=== PATIENT | female | born 1945 | race Caucasian/White ===

== ENCOUNTER → 2016-03-04 | Outpatient (CLI) | payer MEDICARE, OTHER ==
[~2016-03-04] VITALS: Ht 154.9 cm; Wt 114.8 kg
[~2016-03-04] MED LIST: ALEVE COLD PO; B-121000 MCG PO; CELLUVISC OU; CENTRUM SILVER1 CTB PO; CLEOCIN HCL300 MG PO; COLACE 100100 MG/CAP PO; DECADRON 4MG TAB4 MG PO; FLONASE NASAL S16 GM NS; GLUCOSAMINE & C1 CA1 PO; LUTEIN20 MG PO; NASALCROM5.2 MG/ACT; OS-CAL 500 + D1 TAB PO; OYSCO 500 + D 51 TAB PO; PERCOCET 325 MG1 TA2 PO; PREDNISONE20 MG PO; PRIL40 PO; PRILOSEC 20MG20 MG PO; PRILOSEC10 MG/Pack PO; REFRESH CELLUVI1 SOL OU; REFRESH PLUS 00.4 M1 OU; RESTASIS0.05% OP; SYNTHROID0.175 MG; SYNTHROID0.2 MG/TAB PO; VITAMIN D3; VITAMIN D32000 IU PO; WELLBUTRIN 75MG75 MG PO; ZEAXANTHIN PO; ZOFRAN ODT4 MG PO; [UNRECOGNIZED DRUG - OTHER] NS; [UNRECOGNIZED DRUG - OTHER] PO
[2016-03-04 15:40] VITALS: BP 140/66; PULSE 72
[2016-03-04 16:51] VITALS: BP 140/66; PULSE 72
== END ==
LOC: LIGHT 01-15 14:47
DX: E16.1 Other hypoglycemia (principal); E66.01 Morbid (severe) obesity due to excess calories; Z68.42 Body mass index [BMI] 45.0-49.9, adult; E03.8 Other specified hypothyroidism; K21.9 Gastro-esophageal reflux disease without esophagitis

== ENCOUNTER → 2016-05-06 | Outpatient (CLI) | payer MEDICARE, OTHER ==
[~2016-05-06] VITALS: Ht 156.2 cm; Wt 116.1 kg
== END ==
LOC: LIGHT 13:50
DX: E16.1 Other hypoglycemia (principal); K21.9 Gastro-esophageal reflux disease without esophagitis; E03.8 Other specified hypothyroidism; E66.01 Morbid (severe) obesity due to excess calories; Z68.42 Body mass index [BMI] 45.0-49.9, adult

== ENCOUNTER → 2016-08-12 | Outpatient (CLI) | payer MEDICARE, OTHER ==
[~2016-08-12] VITALS: Ht 156.2 cm; Wt 118.4 kg
[2016-08-12 15:07] VITALS: BP 134/66; PULSE 66
== END ==
LOC: LIGHT 06-10 09:25
DX: E16.1 Other hypoglycemia (principal); E66.01 Morbid (severe) obesity due to excess calories; Z71.3 Dietary counseling and surveillance; E03.9 Hypothyroidism, unspecified; K21.9 Gastro-esophageal reflux disease without esophagitis

== ENCOUNTER → 2016-10-07 | Outpatient (CLI) | payer MEDICARE, OTHER ==
[~2016-10-07] VITALS: Ht 156.2 cm; Wt 117.5 kg
[2016-10-07 14:24] VITALS: BP 126/60; PULSE 72
== END ==
LOC: LIGHT 13:58
DX: E16.1 Other hypoglycemia (principal); E66.01 Morbid (severe) obesity due to excess calories; Z68.42 Body mass index [BMI] 45.0-49.9, adult; Z71.3 Dietary counseling and surveillance; E03.9 Hypothyroidism, unspecified; K21.9 Gastro-esophageal reflux disease without esophagitis

== ENCOUNTER → 2016-11-10 | Outpatient (CLI) | payer MEDICARE, OTHER | LOC: COL.RAD 09:43 | DX: K76.0 Fatty (change of) liver, not elsewhere classified (principal); R79.89 Other specified abnormal findings of blood chemistry; R94.5 Abnormal results of liver function studies; Z90.49 Acquired absence of other specified parts of digestive tract ==

== ENCOUNTER → 2016-11-11 | Outpatient (CLI) | payer MEDICARE, OTHER ==
[~2016-11-11] VITALS: Ht 154.9 cm; Wt 115.9 kg
[~2016-11-11] MED LIST changes: +ANTIVERT 25MG25 MG PO; +PHENERGAN 25 TA25 MG PO
[2016-11-11 13:37] VITALS: BP 130/70; PULSE 68
== END ==
LOC: LIGHT
DX: E16.1 Other hypoglycemia (principal); E66.01 Morbid (severe) obesity due to excess calories; Z68.42 Body mass index [BMI] 45.0-49.9, adult; Z71.3 Dietary counseling and surveillance; E03.9 Hypothyroidism, unspecified; K21.9 Gastro-esophageal reflux disease without esophagitis

== ENCOUNTER 2016-12-02 14:51 | Emergency (ER) | payer MEDICARE, OTHER ==
[~2016-12-02] VITALS: Ht 154.9 cm; Wt 115.5 kg
[~2016-12-02 14:51] MED LIST changes: -ANTIVERT 25MG25 MG PO; -PHENERGAN 25 TA25 MG PO
[2016-12-02 14:54] VITALS: TEMP 97.8
[2016-12-02 15:51] LABS: ADJUSTED CALCIUM 9.2 mg/dL (8.4-10.2); ALANINE AMINOTRANSFERASE 62 U/L (9-52); ALBUMIN 4.2 gm/dL (3.5-5.0); ALKALINE PHOSPHATASE 78 U/L (50-136); ANION GAP 13 mmol/L (7-16); BASO # 0.1 (0.0-0.2); BASO % 0.7 % (0.0-2.0); BILIRUBIN,TOTAL 0.7 mg/dL (0.0-1.0); BLOOD UREA NITROGEN 16 mg/dL (7-17); CALCIUM 9.4 mg/dL (8.4-10.2); CARBON DIOXIDE 19 mmol/L (22-30); CHLORIDE 108 mmol/L (98-107); CREATININE, serum 0.72 mg/dL (0.52-1.25); EOS # 0.7 (0.0-0.7); EOS % 9.1 % (0-4.0); GLUCOSE 102 mg/dL (74-106); GRAN # 3.9 (1.4-6.5); GRAN % 48.4 % (42.2-75.2); HEMATOCRIT 42.2 % (37.0-47.0); HEMOGLOBIN 13.9 g/dl (12.5-16.0); LIPASE 104 U/L (23-300); LYMPH # 2.5 (1.2-3.4); LYMPH % 31.2 % (20.0-51.0); MEAN CELL VOLUME 90 fl (80.0-100.0); MEAN CORPUSCULAR HEMOGLOBIN 30 pg (27.0-31.0); MEAN CORPUSCULAR HGB CONC 33 g/dl (33.0-37.0); MEAN PLATELET VOLUME 12.1 fl (7.4-10.4); MONO # 0.9 (0.1-0.6); MONO % 10.4 % (1.7-9.3); PLATELET COUNT 180 K/mm3 (130-400); POTASSIUM 3.9 mmol/L (3.4-5.0); RED BLOOD COUNT 4.68 M/mm3 (4.10-5.30); SODIUM 140 mmol/L (137-145); TOTAL PROTEIN 7.7 gm/dL (6.4-8.2); WHITE BLOOD COUNT 8.1 K/mm3 (4.8-10.8)
[2016-12-02 15:52] LABS: INR 1.1 (0.8-3.0); PROTHROMBIN TIME 12.2 SECONDS (9.7-12.8)
[2016-12-02 16:02] LABS: B-TYPE NATRIURETIC PEPTIDE 91 pg/mL (0-125)
[2016-12-02 16:07] LABS: TROPONIN-I < 0.012 ng/mL (0.000-0.034)
[2016-12-02 17:14] VITALS: BP 131/83
[2016-12-02] MEDS ORDERED: ANTIVERT 25MG25 MG PO (18:14)
[2016-12-02] MEDS ORDERED: PHENERGAN 25 TA25 MG PO (18:14)
[2016-12-02 18:27] VITALS: PULSE 63
== END 2016-12-02 18:29 | disposition home or self-care (01) ==
LOC: COL.ER 14:51
PROVIDERS: Emergency Medicine
DX: R42 Dizziness and giddiness (principal); Z86.79 Personal history of other diseases of the circulatory system; Z87.19 Personal history of other diseases of the digestive system; Z95.0 Presence of cardiac pacemaker; Z90.49 Acquired absence of other specified parts of digestive tract; Z98.890 Other specified postprocedural states
CPT/HCPCS: J2550; J7040

== ENCOUNTER → 2016-12-09 | Outpatient (CLI) | payer MEDICARE, OTHER ==
[~2016-12-09] VITALS: Ht 154.9 cm; Wt 114.1 kg
[~2016-12-09] MED LIST changes: +ANTIVERT 25MG25 MG PO; +MOVE FREE ULTRA PO; +PHENERGAN 25 TA25 MG PO
[2016-12-09 16:10] VITALS: BP 140/68; PULSE 80
== END ==
LOC: LIGHT 10:30
DX: E16.1 Other hypoglycemia (principal); E66.01 Morbid (severe) obesity due to excess calories; Z68.42 Body mass index [BMI] 45.0-49.9, adult; Z71.3 Dietary counseling and surveillance; E03.9 Hypothyroidism, unspecified; K21.9 Gastro-esophageal reflux disease without esophagitis

== ENCOUNTER → 2017-02-03 | Outpatient (CLI) | payer MEDICARE, OTHER ==
[~2017-02-03] VITALS: Ht 154.9 cm; Wt 114.3 kg
[2017-02-03 13:49] VITALS: BP 126/64; PULSE 60
== END ==
LOC: LIGHT 09:40
DX: E16.1 Other hypoglycemia (principal); E66.01 Morbid (severe) obesity due to excess calories; Z68.42 Body mass index [BMI] 45.0-49.9, adult; Z71.3 Dietary counseling and surveillance; E03.9 Hypothyroidism, unspecified; K21.9 Gastro-esophageal reflux disease without esophagitis

== ENCOUNTER → 2017-05-05 | Outpatient (CLI) | payer MEDICARE, OTHER ==
[~2017-05-05] VITALS: Ht 154.9 cm; Wt 115.2 kg
[~2017-05-05] MED LIST changes: -B-121000 MCG PO; +GLUCOPHAGE500 MG/TAB PO; +VITAMIN B12 681 TAB PO
[2017-05-05 13:17] VITALS: BP 114/62; PULSE 72
== END ==
LOC: LIGHT 04-17 10:19
DX: E16.1 Other hypoglycemia (principal); E66.01 Morbid (severe) obesity due to excess calories; Z68.42 Body mass index [BMI] 45.0-49.9, adult; Z71.3 Dietary counseling and surveillance; E03.9 Hypothyroidism, unspecified; K21.9 Gastro-esophageal reflux disease without esophagitis
CPT/HCPCS: G0463

== ENCOUNTER → 2017-06-09 | Outpatient (CLI) | payer MEDICARE, OTHER ==
[~2017-06-09] VITALS: Ht 154.9 cm; Wt 112.3 kg
[2017-06-09 13:10] VITALS: BP 120/70; PULSE 64
== END ==
LOC: LIGHT 12:59
DX: E16.1 Other hypoglycemia (principal); E66.01 Morbid (severe) obesity due to excess calories; Z71.3 Dietary counseling and surveillance; E03.9 Hypothyroidism, unspecified; K21.9 Gastro-esophageal reflux disease without esophagitis
CPT/HCPCS: G0463

== ENCOUNTER → 2017-06-30 | Outpatient (CLI) | payer MEDICARE, OTHER ==
[~2017-06-30] VITALS: Ht 154.9 cm; Wt 112.5 kg
[~2017-06-30] MED LIST changes: -GLUCOPHAGE500 MG/TAB PO; +GLUCOPHAGE850 MG/TAB PO
[2017-06-30 13:51] VITALS: BP 126/60; PULSE 72
== END ==
LOC: LIGHT 08:55
DX: E16.1 Other hypoglycemia (principal); E66.01 Morbid (severe) obesity due to excess calories; Z68.42 Body mass index [BMI] 45.0-49.9, adult; Z71.3 Dietary counseling and surveillance; E03.9 Hypothyroidism, unspecified; K21.9 Gastro-esophageal reflux disease without esophagitis
CPT/HCPCS: G0463

== ENCOUNTER → 2017-07-22 | Outpatient (CLI) | payer MEDICARE, OTHER | LOC: COL.RAD 07-20 09:00 | DX: M17.12 Unilateral primary osteoarthritis, left knee (principal) ==

== ENCOUNTER → 2017-09-01 | Outpatient (CLI) | payer MEDICARE, OTHER ==
[~2017-09-01] VITALS: Ht 154.9 cm; Wt 110.2 kg
[2017-09-01 13:13] VITALS: BP 130/64; PULSE 80
== END ==
LOC: LIGHT 08-04 15:13
DX: E16.1 Other hypoglycemia (principal); E66.01 Morbid (severe) obesity due to excess calories; Z68.42 Body mass index [BMI] 45.0-49.9, adult; Z71.3 Dietary counseling and surveillance; E03.9 Hypothyroidism, unspecified; K21.9 Gastro-esophageal reflux disease without esophagitis
CPT/HCPCS: G0463

== ENCOUNTER → 2017-11-03 | Outpatient (CLI) | payer MEDICARE, OTHER ==
[~2017-11-03] VITALS: Ht 154.9 cm; Wt 108.0 kg
[~2017-11-03] MED LIST changes: +IMODIUM 2MG CAPS2 MG PO; +PROBIOTIC-MAJOR PO
[2017-11-03 13:14] VITALS: BP 120/60; PULSE 84
== END ==
LOC: LIGHT 10:48
DX: E16.9 Disorder of pancreatic internal secretion, unspecified (principal); E03.9 Hypothyroidism, unspecified; K21.9 Gastro-esophageal reflux disease without esophagitis; E66.01 Morbid (severe) obesity due to excess calories; Z68.42 Body mass index [BMI] 45.0-49.9, adult; Z71.3 Dietary counseling and surveillance
CPT/HCPCS: G0463

== ENCOUNTER → 2018-03-16 | Outpatient (CLI) | payer MEDICARE, OTHER ==
[~2018-03-16] VITALS: Ht 154.9 cm; Wt 109.3 kg
[~2018-03-16] MED LIST changes: +GLUCOPHAGE XR750 MG PO; -GLUCOPHAGE850 MG/TAB PO
[2018-03-16 15:05] VITALS: BP 142/64; PULSE 76
== END ==
LOC: LIGHT 12-08 16:17
DX: E16.9 Disorder of pancreatic internal secretion, unspecified (principal); E03.9 Hypothyroidism, unspecified; K21.9 Gastro-esophageal reflux disease without esophagitis; E66.01 Morbid (severe) obesity due to excess calories; Z68.42 Body mass index [BMI] 45.0-49.9, adult; Z71.3 Dietary counseling and surveillance
CPT/HCPCS: G0463

== ENCOUNTER → 2018-06-01 | Outpatient (CLI) | payer MEDICARE, OTHER ==
[~2018-06-01] VITALS: Ht 154.9 cm; Wt 109.1 kg
[2018-06-01 13:08] VITALS: BP 136/66; PULSE 84
== END ==
LOC: LIGHT 12:51
DX: E16.9 Disorder of pancreatic internal secretion, unspecified (principal); E03.9 Hypothyroidism, unspecified; K21.9 Gastro-esophageal reflux disease without esophagitis; E66.01 Morbid (severe) obesity due to excess calories; Z68.42 Body mass index [BMI] 45.0-49.9, adult; Z71.3 Dietary counseling and surveillance
CPT/HCPCS: G0463

== ENCOUNTER → 2018-06-21 | Outpatient (CLI) | payer MEDICARE, OTHER | LOC: MC.RAD 07:36 | DX: Z12.31 Encounter for screening mammogram for malignant neoplasm of breast (principal) ==

== ENCOUNTER → 2018-07-13 | Outpatient (CLI) | payer MEDICARE, OTHER ==
[~2018-07-13] VITALS: Ht 154.9 cm; Wt 108.0 kg
[~2018-07-13] MED LIST changes: +LIPITOR20 MG PO
[2018-07-13 13:06] VITALS: BP 128/70; PULSE 64
== END ==
LOC: LIGHT 12:50
DX: E16.9 Disorder of pancreatic internal secretion, unspecified (principal); E03.9 Hypothyroidism, unspecified; K21.9 Gastro-esophageal reflux disease without esophagitis; E66.01 Morbid (severe) obesity due to excess calories; Z68.41 Body mass index [BMI] 40.0-44.9, adult; Z71.3 Dietary counseling and surveillance
CPT/HCPCS: G0463

== ENCOUNTER → 2018-09-07 | Outpatient (CLI) | payer MEDICARE, OTHER ==
[~2018-09-07] VITALS: Ht 152.4 cm; Wt 108.4 kg
[2018-09-07 13:23] VITALS: BP 112/66; PULSE 72
== END ==
LOC: LIGHT 13:01
DX: E16.9 Disorder of pancreatic internal secretion, unspecified (principal); E03.9 Hypothyroidism, unspecified; K21.9 Gastro-esophageal reflux disease without esophagitis; E66.01 Morbid (severe) obesity due to excess calories; Z68.42 Body mass index [BMI] 45.0-49.9, adult; Z71.3 Dietary counseling and surveillance
CPT/HCPCS: G0463

== ENCOUNTER → 2018-11-09 | Outpatient (CLI) | payer MEDICARE, OTHER ==
[~2018-11-09] VITALS: Ht 152.4 cm; Wt 108.9 kg
[~2018-11-09] MED LIST changes: +B-121000 MCG PO; -VITAMIN B12 681 TAB PO; +VITAMIN D31000 I1 PO; -VITAMIN D32000 IU PO
[2018-11-09 14:03] VITALS: BP 142/64; PULSE 64
== END ==
LOC: LIGHT 10-12 15:16
DX: E16.9 Disorder of pancreatic internal secretion, unspecified (principal); E03.9 Hypothyroidism, unspecified; K21.9 Gastro-esophageal reflux disease without esophagitis; E66.01 Morbid (severe) obesity due to excess calories; Z68.42 Body mass index [BMI] 45.0-49.9, adult; Z71.3 Dietary counseling and surveillance
CPT/HCPCS: G0463

== ENCOUNTER → 2018-12-07 | Outpatient (CLI) | payer MEDICARE, OTHER ==
[~2018-12-07] VITALS: Ht 152.4 cm; Wt 108.6 kg
[2018-12-07 13:51] VITALS: BP 150/74; PULSE 64
== END ==
LOC: LIGHT 13:38
DX: E16.9 Disorder of pancreatic internal secretion, unspecified (principal); E03.9 Hypothyroidism, unspecified; K21.9 Gastro-esophageal reflux disease without esophagitis; E66.01 Morbid (severe) obesity due to excess calories; Z68.42 Body mass index [BMI] 45.0-49.9, adult; Z71.3 Dietary counseling and surveillance
CPT/HCPCS: G0463

== ENCOUNTER → 2019-04-12 | Outpatient (CLI) | payer MEDICARE, OTHER ==
[~2019-04-12] VITALS: Ht 152.4 cm; Wt 109.5 kg
[~2019-04-12] MED LIST changes: +ALEVE 220MG220 MG PO; -ALEVE COLD PO; +ALEVE SINUS & H1 TER PO; +FOLIC ACID 11 MG/TA1 PO; +LIDEX CR 15GM TP; +LUTEIN 15 MG-0.1 SGL PO; +MULTIVITAMIN FO1 CAP PO; +RELAFEN 50500 MG/TAB PO; -SYNTHROID0.175 MG; +SYNTHROID0.175 MG PO; -VITAMIN D31000 I1 PO; +VITAMIN D32000 I1 PO; -ZEAXANTHIN PO; -[UNRECOGNIZED DRUG - OTHER] PO
[2019-04-12 14:52] VITALS: BP 142/62; PULSE 76
== END ==
LOC: LIGHT 14:42
DX: Z68.42 Body mass index [BMI] 45.0-49.9, adult (principal); E16.1 Other hypoglycemia; K21.9 Gastro-esophageal reflux disease without esophagitis
CPT/HCPCS: G0463

== ENCOUNTER → 2019-05-03 | Outpatient (CLI) | payer MEDICARE, OTHER ==
[~2019-05-03] VITALS: Ht 152.4 cm; Wt 110.2 kg
[2019-05-03 13:30] VITALS: BP 144/64; PULSE 64
== END ==
LOC: LIGHT 13:16
DX: Z68.42 Body mass index [BMI] 45.0-49.9, adult (principal); E16.1 Other hypoglycemia; K21.9 Gastro-esophageal reflux disease without esophagitis
CPT/HCPCS: G0463

== ENCOUNTER 2019-05-13 09:30 | Outpatient (RCR) | payer MEDICARE, OTHER | END 2019-06-26 | disposition home or self-care (01) | LOC: WSPT | DX: M17.12 Unilateral primary osteoarthritis, left knee (principal) ==

== ENCOUNTER → 2019-05-16 | Outpatient (CLI) | payer MEDICARE, OTHER | LOC: COL.RAD 10:48 | DX: M51.16 Intervertebral disc disorders with radiculopathy, lumbar region (principal); M47.816 Spondylosis without myelopathy or radiculopathy, lumbar region; M43.16 Spondylolisthesis, lumbar region ==

== ENCOUNTER → 2019-08-02 | Outpatient (CLI) | payer MEDICARE, OTHER | LOC: MHCPAIN 08:21 | DX: M47.817 Spondylosis without myelopathy or radiculopathy, lumbosacral region (principal); M54.5 Low back pain; M54.16 Radiculopathy, lumbar region; G89.29 Other chronic pain | CPT/HCPCS: G0463 ==

== ENCOUNTER → 2019-08-08 | Outpatient (CLI) | payer MEDICARE, OTHER | LOC: MC.RAD 13:48 | DX: Z12.31 Encounter for screening mammogram for malignant neoplasm of breast (principal) ==

== ENCOUNTER → 2019-09-06 | Outpatient (CLI) | payer MEDICARE, OTHER ==
[~2019-09-06] VITALS: Ht 152.4 cm; Wt 106.1 kg
[~2019-09-06] MED LIST changes: +PROTONIX20 MG PO
[2019-09-06 13:09] VITALS: BP 130/74; PULSE 72
== END ==
LOC: LIGHT 08-16 13:27
DX: E66.01 Morbid (severe) obesity due to excess calories (principal); Z68.41 Body mass index [BMI] 40.0-44.9, adult; E16.1 Other hypoglycemia; K21.9 Gastro-esophageal reflux disease without esophagitis
CPT/HCPCS: G0463

== ENCOUNTER → 2019-10-11 | Outpatient (CLI) | payer MEDICARE, OTHER ==
[~2019-10-11] VITALS: Ht 152.4 cm; Wt 107.7 kg
[~2019-10-11] MED LIST changes: +VITAMIN D31000 I1 PO
[2019-10-11 15:03] VITALS: BP 134/72; PULSE 72
== END ==
LOC: LIGHT 10:42
DX: E66.01 Morbid (severe) obesity due to excess calories (principal); Z68.41 Body mass index [BMI] 40.0-44.9, adult; E16.1 Other hypoglycemia; E03.9 Hypothyroidism, unspecified; K21.9 Gastro-esophageal reflux disease without esophagitis
CPT/HCPCS: G0463

== ENCOUNTER → 2019-12-06 | Outpatient (CLI) | payer MEDICARE, OTHER ==
[~2019-12-06] VITALS: Ht 152.4 cm; Wt 105.2 kg
[~2019-12-06] MED LIST changes: +CULTURELLE WOM1 EACH PO; +LIPITOR 10MG10 MG PO; -LIPITOR20 MG PO; -PROBIOTIC-MAJOR PO; +PROTONIX 40MG T40 MG PO; -PROTONIX20 MG PO; +TOPROL XL 25MG25 MG PO
[2019-12-06 15:20] VITALS: BP 130/66; PULSE 76
== END ==
LOC: LIGHT 11-08 14:42
DX: E66.01 Morbid (severe) obesity due to excess calories (principal); Z68.42 Body mass index [BMI] 45.0-49.9, adult; E16.1 Other hypoglycemia; E03.9 Hypothyroidism, unspecified
CPT/HCPCS: G0463

== ENCOUNTER → 2020-01-10 | Outpatient (CLI) | payer MEDICARE, OTHER ==
[~2020-01-10] VITALS: Ht 152.4 cm; Wt 108.0 kg
[~2020-01-10] MED LIST changes: +B-12 500 MCG PO; +SYNTHROID 0.10.15 MG PO; -SYNTHROID0.175 MG PO
[2020-01-10 14:20] VITALS: BP 130/60; PULSE 80
== END ==
LOC: LIGHT 10:20
DX: E66.01 Morbid (severe) obesity due to excess calories (principal); Z68.42 Body mass index [BMI] 45.0-49.9, adult; E16.1 Other hypoglycemia; K21.9 Gastro-esophageal reflux disease without esophagitis
CPT/HCPCS: G0463

== ENCOUNTER → 2020-08-09 | Outpatient (CLI) | payer MEDICARE, OTHER | LOC: MC.RAD 08:45 | DX: Z12.31 Encounter for screening mammogram for malignant neoplasm of breast (principal) ==

== ENCOUNTER → 2021-03-22 | Outpatient (CLI) | payer MEDICARE, OTHER | LOC: ZCOL.LAB 15:28 | DX: Z20.822 Contact with and (suspected) exposure to COVID-19 (principal) ==

== ENCOUNTER → 2021-03-28 | Outpatient (CLI) | payer MEDICARE, OTHER | LOC: ZCOL.LAB 16:20 | DX: R09.81 Nasal congestion (principal); Z20.822 Contact with and (suspected) exposure to COVID-19 ==

== ENCOUNTER → 2021-10-03 | Outpatient (CLI) | payer MEDICARE, OTHER | LOC: MC.RAD 10:29 | DX: Z12.31 Encounter for screening mammogram for malignant neoplasm of breast (principal) ==

== ENCOUNTER 2022-11-28 10:00 | Outpatient (RCR) | payer MEDICARE, OTHER | END 2022-11-29 | disposition home or self-care (01) | LOC: PT.GENESIS | DX: R29.898 Other symptoms and signs involving the musculoskeletal system (principal) ==

== ENCOUNTER → 2023-01-29 | Outpatient (RCR) | payer MEDICARE, OTHER | END | disposition home or self-care (01) | LOC: PT.GENESIS | DX: M62.81 Muscle weakness (generalized) (principal); M79.662 Pain in left lower leg; M25.512 Pain in left shoulder; M25.511 Pain in right shoulder ==

== ENCOUNTER 2023-02-10 14:30 | Outpatient (RCR) | payer MEDICARE, OTHER | END 2023-03-01 | disposition home or self-care (01) | LOC: PT.GENESIS | DX: M62.81 Muscle weakness (generalized) (principal); M25.511 Pain in right shoulder; M25.512 Pain in left shoulder; M79.662 Pain in left lower leg ==

== ENCOUNTER → 2023-12-31 | Outpatient (RCR) | payer MEDICARE, OTHER | END | disposition home or self-care (01) | LOC: PT.GENESIS | DX: M25.512 Pain in left shoulder (principal) ==

== ENCOUNTER 2024-01-26 08:30 | Outpatient (RCR) | payer MEDICARE, OTHER | END 2024-01-30 | disposition home or self-care (01) | LOC: PT.GENESIS | DX: M25.512 Pain in left shoulder (principal) ==